=== PATIENT | female | born 1960 | race Caucasian/White ===

== ENCOUNTER → 2017-04-29 | Outpatient (CLI) | payer BC ==
[~2017-04-29] MED LIST: ASPI-1471 PO; LEVO75TA73 PO; MAGN100T PO; METH-543 PO; MULT-1081 PO; OXYGENHOME INH; TRAM-420 PO
--- NOTE | 2017-04-29 16:43 | RADIOLOGY IMAGING REPORT ---
FACILITY: [facility] PATIENT NAME: ELIGIO BAILEY : [id number] MR: [id number] V: [id number] EXAM DATE: [id number] ORDERING PHYSICIAN: ELLIS CHAPARRO TECHNOLOGIST: Ana Wolfe PROCEDURE:BILATERAL DIAGNOSTIC DIGITAL MAMMOGRAM WITH CAD ASSISTED INTERPRETATION & 3D TOMOSYNTHESIS COMPARISON:Prior mammograms from [place] are not available at the time of this report. INDICATIONS:BURNING IN LT BREAST/DIFFUSE BILATERAL BREAST PAIN INCLUDING THE NIPPLE & AXILLA AREA/FAMILY HISTORY OF BREAST CARCINOMA IN MOTHER IN HER 40'S, MATERNAL GRANDMOTHER & MATERNAL AUNT. VIEWS OBTAINED: Bilateral 2D full field CC & MLO & corresponding 3D tomography TISSUE DENSITY: Scattered fibroglandular densities FINDINGS: No dominant mass, architectural distortion, or suspicious microcalcifications are seen. There is a benign appearing lymph node in the upper outer quadrant located 13cm from the nipple. DIAGNOSTIC CATEGORY 0--INCOMPLETE: NEED ADDITIONAL IMAGING EVALUATION. RECOMMENDATIONS: Obtain prior mammograms from [place]. Consider genetic counseling fue to strong maternal family history of breast cancer. COMPARISON TO PRIOR EXAMS REQUIRED. An addendum report will be sent after prior exams are obtained and reviewed. Dictated by: Blanca Patiño M.D. on 04/29/2017 at 15:39 Transcribed by: ANASTASIA on 04/29/2017 at 15:50 Approved by: Blanca Patiño M.D. on 04/29/2017 at 16:42 [facility]
== END ==
LOC: MAMO 02:45
PROVIDERS: ATTEND Family Medicine
DX: N64.9 Disorder of breast, unspecified (principal); R92.8 Other abnormal and inconclusive findings on diagnostic imaging of breast
CPT/HCPCS: 77062; 77066